=== PATIENT | female | born 1995 | race African-American/Black ===

== ENCOUNTER 2019-02-11 11:52 | Emergency (ER) | payer SELFPAY | END 2019-02-11 14:05 | disposition left against medical advice (07) | LOC: ER 11:52 | DX: Z53.21 Procedure and treatment not carried out due to patient leaving prior to being seen by health care provider (principal) ==

== ENCOUNTER 2019-02-13 01:06 | Emergency (ER) | payer SELFPAY | END 2019-02-13 01:33 | disposition left against medical advice (07) | LOC: ER 01:06 | DX: Z53.21 Procedure and treatment not carried out due to patient leaving prior to being seen by health care provider (principal) ==

== ENCOUNTER 2020-04-03 19:58 | Emergency (ER) | payer SELFPAY ==
[~2020-04-03] VITALS: Ht 167.6 cm; Wt 50.0 kg
[2020-04-03] MEDS ORDERED: METOCLOPRAMIDE HCL 10MG TABLET PO ONE (20:15)
[2020-04-03] MEDS ORDERED: ONDANSETRON HCL 4MG/2ML INJ IV STA (21:25)
[2020-04-03] MEDS ORDERED: KETOROLAC 30MG/ML VIAL IV STA (21:25)
[2020-04-03] MEDS ORDERED: MORPHINE SULFATE 4 MG/ML CPJ (NOT FOR IM USE) IV STA (21:25)
[2020-04-03] MEDS ORDERED: ACETAMINOPHEN 325MG TABLET PO STA (21:25)
[2020-04-03] MEDS ORDERED: SODIUM CHLORIDE 0.9% 1,000 ML IV ONE ×2 (21:30→23:00)
[2020-04-03 22:02] LABS: CLARITY URINE CLEAR (CLEAR); COLOR URINE YELLOW (YELLOW); KETONES URINE 1+ (NEGATIVE); LEUKOCYTE ESTERASE URINE NEGATIVE (NEGATIVE); NITRITE URINE NEGATIVE (NEGATIVE); OCCULT BLOOD URINE 3+ (NEGATIVE); PH URINE >=9.0 (4.5-8.0); PROTEIN URINE TRACE (NEGATIVE); SPECIFIC GRAVITY URINE 1.021 (1.005-1.030); UROBILINOGEN URINE 0.2 E.U./dL (0.2-1.0)
[2020-04-03 22:03] LABS: BASOPHILS % 0.3 % (0.0-2.0); EOSINOPHILS % 0.1 % (0.0-5.0); HEMATOCRIT. 36.8 % (36.0-48.0); HEMOGLOBIN. 12.3 g/dL (12.0-16.0); LYMPHOCYTES % 11.4 % (20.0-50.0); MEAN CORPUSCULAR HEMOGLOBIN 26.8 pg (28.0-32.0); MEAN CORPUSCULAR VOLUME 79.9 fL (81.0-99.0); MEAN PLATELET VOLUME 9.2 fl (7.4-10.4); NEUTROPHILS % 81.2 % (40.0-76.0); PLATELET 303 x1000/uL (130-400); RED CELL DISTRIBUTION WIDTH 15.1 % (11.6-14.6)
[2020-04-03 22:08] LABS: UCG SCREEN NEGATIVE
[2020-04-03 22:16] LABS: INR 1.1; PROTHROMBIN TIME 11.3 sec (9.6-11.0)
[2020-04-03 22:17] LABS: *AMPHETAMINES SCREEN URINE NEGATIVE (NEGATIVE); *BARBITURATES SCREEN URINE NEGATIVE (NEGATIVE); METHADONE URINE SCREEN NEGATIVE (NEGATIVE); OPIATES URINE SCREEN NEGATIVE (NEGATIVE); PHENCYCLIDINE URINE SCREEN NEGATIVE (NEGATIVE)
[2020-04-03 22:19] LABS: *BENZODIAZEPINES SCREEN URINE NEGATIVE (NEGATIVE); *COCAINE SCREEN URINE NEGATIVE (NEGATIVE)
[2020-04-03 22:21] LABS: CHLORIDE 106 mEq/L (98-107)
[2020-04-03 22:21] LABS: CANNABINOID URINE SCREEN PRESUMTIVE POSITIVE (NEGATIVE)
[2020-04-03] MEDS ORDERED: HALOPERIDOL LACTATE 5MG/ML VIAL IM ONE (22:30)
[2020-04-04] MEDS ORDERED: ONDA4TAB5 MT (00:44)
[2020-04-04 01:08] VITALS: BP 102/57
== END 2020-04-04 01:18 | disposition home or self-care (01) ==
LOC: ER 20:06
DX: R10.84 Generalized abdominal pain (principal); R11.10 Vomiting, unspecified; F12.10 Cannabis abuse, uncomplicated
CPT/HCPCS: 36415; 80053; 80305; 81003; 81025; 83605; 83690; 85025; 85610; 93005; 96361; 96374; 96375; 99284; J1885; J2405; J7030; J8597; J1630

== ENCOUNTER 2020-08-10 10:29 | Emergency (ER) | payer MEDICAID ==
[~2020-08-10] VITALS: Ht 170.2 cm; Wt 60.0 kg
[~2020-08-10 10:29] MED LIST: ONDA4TAB5 MT
[2020-08-10 12:15] LABS: HEMATOCRIT. 38.1 % (36.0-48.0); HEMOGLOBIN. 12.9 g/dL (12.0-16.0); MEAN CORPUSCULAR HEMOGLOBIN 26.3 pg (28.0-32.0); MEAN CORPUSCULAR VOLUME 77.9 fL (81.0-99.0); PLATELET 271 x1000/uL (130-400); RED BLOOD CELL COUNT 4.88 mill/uL (4.2-5.4); RED CELL DISTRIBUTION WIDTH 15.8 % (11.6-14.6)
[2020-08-10 12:16] LABS: CHLORIDE 102 mEq/L (98-107)
[2020-08-10 12:25] LABS: CLARITY URINE CLOUDY (CLEAR); COLOR URINE DARK YELLOW (YELLOW); KETONES URINE 2+ (NEGATIVE); LEUKOCYTE ESTERASE URINE NEGATIVE (NEGATIVE); NITRITE URINE NEGATIVE (NEGATIVE); OCCULT BLOOD URINE NEGATIVE (NEGATIVE); PH URINE 5.5 (4.5-8.0); PROTEIN URINE 1+ (NEGATIVE)
[2020-08-10 13:00] LABS: PLATELET ESTIMATE NORMAL
[2020-08-10 14:12] VITALS: BP 116/81
== END 2020-08-10 14:15 | disposition home or self-care (01) ==
LOC: ER 10:29
DX: E86.0 Dehydration (principal); D72.819 Decreased white blood cell count, unspecified
CPT/HCPCS: 36415; 80053; 81003; 81025; 85025; 99283

== ENCOUNTER 2021-03-20 00:33 | Emergency (ER) | payer MEDICAID ==
[~2021-03-20] VITALS: Ht 175.3 cm; Wt 64.0 kg
[2021-03-20] MEDS ORDERED: ONDANSETRON HCL 4MG/2ML INJ IV STA (00:39)
[2021-03-20] MEDS ORDERED: SODIUM CHLORIDE 0.9% 1,000 ML IV ONE (00:45)
[2021-03-20 01:09] VITALS: BP 107/69
== END 2021-03-20 01:51 | disposition left against medical advice (07) ==
LOC: ER 00:33
DX: R10.13 Epigastric pain (principal); F12.10 Cannabis abuse, uncomplicated
CPT/HCPCS: 99283; J7030

== ENCOUNTER 2021-03-20 06:15 | Emergency (ER) | payer MEDICAID ==
[~2021-03-20] VITALS: Ht 175.3 cm; Wt 63.0 kg
[2021-03-20] MEDS ORDERED: HALOPERIDOL LACTATE 5MG/ML VIAL IM ONE (06:30)
[2021-03-20] MEDS ORDERED: DIPHENHYDRAMINE 50MG/ML VIAL IM ONE (06:30)
[2021-03-20] MEDS ORDERED: ONDANSETRON 4MG ODT PO ONE (07:00)
[2021-03-20 10:04] VITALS: BP 109/59
== END 2021-03-20 10:15 | disposition home or self-care (01) ==
LOC: ER 06:15
DX: F12.188 Cannabis abuse with other cannabis-induced disorder (principal); F41.9 Anxiety disorder, unspecified; F17.210 Nicotine dependence, cigarettes, uncomplicated; Z71.6 Tobacco abuse counseling
CPT/HCPCS: 96372; 99284; 99406; J1200; J1630; Q0162

== ENCOUNTER 2021-05-31 08:55 | Emergency (ER) | payer MEDICAID ==
[~2021-05-31] VITALS: Ht 170.2 cm; Wt 51.0 kg
[2021-05-31 09:03] VITALS: BP 135/83
[2021-05-31] MEDS ORDERED: MAGNESIUM/ALUMINUM HYDROXIDE/SIMETHICONE 30ML UDC PO STA (09:18)
[2021-05-31] MEDS ORDERED: PANTOPRAZOLE SODIUM 40 MG/VIAL IV STA (09:18)
[2021-05-31] MEDS ORDERED: SODIUM CHLORIDE 0.9% 1,000 ML IV ONE (09:30)
[2021-05-31] MEDS ORDERED: DIPHENHYDRAMINE 50MG/ML VIAL IV ONE (09:30)
[2021-05-31] MEDS ORDERED: METOCLOPRAMIDE HCL 10MG/2ML VIAL IV ONE (09:30)
[2021-05-31] MEDS ORDERED: ONDA4TAB5 MT (22:21)
== END 2021-05-31 11:26 | disposition left against medical advice (07) ==
LOC: ER 10:57
DX: R10.13 Epigastric pain (principal); R11.2 Nausea with vomiting, unspecified; K82.4 Cholesterolosis of gallbladder; F12.10 Cannabis abuse, uncomplicated
CPT/HCPCS: 71045; 76705; 99284; J7030

== ENCOUNTER 2021-05-31 16:30 | Emergency (ER) | payer MEDICAID ==
[~2021-05-31] VITALS: Ht 162.6 cm; Wt 75.0 kg
[2021-05-31 16:31] VITALS: BP 139/118
[2021-05-31] MEDS ORDERED: ONDANSETRON 4MG ODT PO STA (16:37)
[2021-05-31] MEDS ORDERED: ACETAMINOPHEN 325MG TABLET PO STA (16:37)
[2021-05-31] MEDS ORDERED: MAGNESIUM/ALUMINUM HYDROXIDE/SIMETHICONE 30ML UDC PO STA (20:41)
[2021-05-31] MEDS ORDERED: ONDANSETRON HCL 4MG/2ML INJ IV STA (20:41)
[2021-05-31] MEDS ORDERED: ACETAMINOPHEN 325MG TABLET PO NR (20:45)
[2021-05-31] MEDS ORDERED: SODIUM CHLORIDE 0.9% 1,000 ML IV ONE (20:45)
[2021-05-31] MEDS ORDERED: ONDANSETRON HCL 4MG/2ML INJ IV NR (20:45)
[2021-05-31] MEDS ORDERED: ONDANSETRON 4MG ODT PO NR (20:45)
[2021-05-31] MEDS ORDERED: MAGNESIUM/ALUMINUM HYDROXIDE/SIMETHICONE 30ML UDC PO NR (20:45)
[2021-05-31 21:20] LABS: BASOPHILS % 0.8 % (0.0-2.0); CHLORIDE 105 mEq/L (98-107); HEMATOCRIT. 38.5 % (36.0-48.0); HEMOGLOBIN. 12.6 g/dL (12.0-16.0); LYMPHOCYTES % 12.3 % (20.0-50.0); MEAN CORPUSCULAR HEMOGLOBIN 26.6 pg (28.0-32.0); MEAN CORPUSCULAR VOLUME 81.6 fL (81.0-99.0); MEAN PLATELET VOLUME 9.2 fl (7.4-10.4); MONOCYTES % 4.9 % (2.0-8.0); PLATELET 331 x1000/uL (130-400); RED BLOOD CELL COUNT 4.72 mill/uL (4.2-5.4); RED CELL DISTRIBUTION WIDTH 15.6 % (11.6-14.6)
[2021-05-31 21:30] LABS: HCG SCREEN NEGATIVE
[2021-05-31] MEDS ORDERED: KETOROLAC 30MG/ML VIAL IV SCH (22:00)
[2021-05-31] MEDS ORDERED: ONDA4TAB5 MT (22:21)
== END 2021-05-31 22:33 | disposition home or self-care (01) ==
LOC: ER 16:30
DX: K85.90 Acute pancreatitis without necrosis or infection, unspecified (principal)
CPT/HCPCS: 36415; 80053; 81025; 83690; 84703; 85025; 93005; 96361; 96374; 96375; 99284; J1885; J2405; J7030

== ENCOUNTER 2021-08-18 16:56 | Emergency (ER) | payer MEDICAID ==
[~2021-08-18] VITALS: Ht 170.2 cm; Wt 51.0 kg
[2021-08-18] MEDS ORDERED: PANTOPRAZOLE SODIUM 40 MG/VIAL IV STA (18:22)
[2021-08-18] MEDS ORDERED: DIPHENHYDRAMINE 50MG/ML VIAL IV ONE (18:30)
[2021-08-18] MEDS ORDERED: HALOPERIDOL LACTATE 5MG/ML VIAL IM ONE (18:30)
[2021-08-18] MEDS ORDERED: SODIUM CHLORIDE 0.9% 1,000 ML IV ONE (18:30)
[2021-08-18 18:41] LABS: BASOPHILS % 0.2 % (0.0-2.0); HEMATOCRIT. 37.9 % (36.0-48.0); HEMOGLOBIN. 12.5 g/dL (12.0-16.0); LYMPHOCYTES % 9.8 % (20.0-50.0); MEAN CORPUSCULAR HEMOGLOBIN 26.6 pg (28.0-32.0); MEAN CORPUSCULAR VOLUME 80.4 fL (81.0-99.0); MEAN PLATELET VOLUME 9.1 fl (7.4-10.4); MONOCYTES % 6.3 % (2.0-8.0); NEUTROPHILS % 83.7 % (40.0-76.0); PLATELET 342 x1000/uL (130-400); RED BLOOD CELL COUNT 4.71 mill/uL (4.2-5.4); RED CELL DISTRIBUTION WIDTH 16.1 % (11.6-14.6)
[2021-08-18 18:47] LABS: INR 1.1; PROTHROMBIN TIME 11.8 sec (9.6-11.0)
[2021-08-18 18:50] LABS: CHLORIDE 105 mEq/L (98-107)
[2021-08-18 18:58] LABS: ETHANOL BLOOD < 10 mg/dL
[2021-08-18 19:00] LABS: HCG SCREEN NEGATIVE
[2021-08-18] MEDS ORDERED: POTASSIUM CHLORIDE INJ 40 MEQ in DEXT 5% WATER 250 ML IV ONE (19:30)
[2021-08-18] MEDS ORDERED: POTASSIUM BICARB/CIT ACID 25 MEQ TABLET.EFF PO ONE (19:30)
[2021-08-18] MEDS ORDERED: KCL 20MEQ/100ML X 2 FOR TOTAL KCL 40MEQ/200ML IV SCH (20:00)
[2021-08-18] MEDS ORDERED: DIPHENHYDRAMINE 50MG/ML VIAL IV NR (20:58)
[2021-08-18] MEDS ORDERED: KETOROLAC 15MG/ML VIAL IV NR (20:59)
[2021-08-18] MEDS ORDERED: PROCHLORPERAZINE 10MG/2ML VIAL IV PRN (21:00)
[2021-08-18] MEDS ORDERED: PROC5TAB55 MT (21:51)
[2021-08-18 23:30] VITALS: BP 124/74
== END 2021-08-19 00:13 | disposition home or self-care (01) ==
LOC: ER 16:56
DX: F12.188 Cannabis abuse with other cannabis-induced disorder (principal); E86.0 Dehydration; E87.6 Hypokalemia
CPT/HCPCS: 36415; 80053; 80320; 83690; 84703; 85025; 85610; 96361; 96365; 96372; 96375; 96376; 99285; C9113; J1200; J1630; J1885; J3480; J7030; J7060; G0480

== ENCOUNTER 2021-10-25 21:05 | Emergency (ER) | payer MEDICAID ==
[~2021-10-25] VITALS: Ht 170.2 cm; Wt 52.0 kg
[~2021-10-25 21:05] MED LIST changes: +PROC5TAB55 MT
[2021-10-25] MEDS ORDERED: METOCLOPRAMIDE HCL 10MG/2ML VIAL IV STA (23:09)
[2021-10-25] MEDS ORDERED: MORPHINE SULFATE 4 MG/ML CPJ (NOT FOR IM USE) IV ONE (23:15)
[2021-10-25] MEDS ORDERED: FAMOTIDINE 20MG/2ML VIAL IV ONE (23:15)
[2021-10-25] MEDS ORDERED: HALOPERIDOL LACTATE 5MG/ML VIAL IM ONE (23:15)
[2021-10-25] MEDS ORDERED: SODIUM CHLORIDE 0.9% 1,000 ML IV ONE (23:15)
[2021-10-25] MEDS ORDERED: DIPHENHYDRAMINE 50MG/ML VIAL IV ONE (23:15)
[2021-10-26 00:12] LABS: BASOPHILS % 0.2 % (0.0-2.0); HEMATOCRIT. 35.8 % (36.0-48.0); HEMOGLOBIN. 11.8 g/dL (12.0-16.0); LYMPHOCYTES % 9.3 % (20.0-50.0); MEAN CORPUSCULAR HEMOGLOBIN 26.8 pg (28.0-32.0); MEAN PLATELET VOLUME 8.9 fl (7.4-10.4); MONOCYTES % 8.2 % (2.0-8.0); NEUTROPHILS % 82.3 % (40.0-76.0); PLATELET 319 x1000/uL (130-400); RED BLOOD CELL COUNT 4.42 mill/uL (4.2-5.4); RED CELL DISTRIBUTION WIDTH 15.7 % (11.6-14.6)
[2021-10-26 00:18] LABS: CHLORIDE 104 mEq/L (98-107)
[2021-10-26 00:26] LABS: HCG SCREEN NEGATIVE
[2021-10-26 00:57] LABS: CLARITY URINE CLEAR (CLEAR); COLOR URINE YELLOW (YELLOW); KETONES URINE 3+ (NEGATIVE); LEUKOCYTE ESTERASE URINE NEGATIVE (NEGATIVE); NITRITE URINE NEGATIVE (NEGATIVE); OCCULT BLOOD URINE 2+ (NEGATIVE); PROTEIN URINE NEGATIVE (NEGATIVE); SPECIFIC GRAVITY URINE 1.018 (1.005-1.030); UROBILINOGEN URINE 0.2 E.U./dL (0.2-1.0)
[2021-10-26] MEDS ORDERED: MAGNESIUM OXIDE 400MG TABLET PO SCH (01:30)
[2021-10-26] MEDS ORDERED: POTASSIUM CHLORIDE 20MEQ TABLET SR PO ONE (01:30)
[2021-10-26 03:30] VITALS: BP 132/68
[2021-10-26] MEDS ORDERED: POTASSIUM CHLORIDE 20MEQ TABLET SR PO NR (03:30)
== END 2021-10-26 03:50 | disposition home or self-care (01) ==
LOC: ER 21:05
DX: R11.2 Nausea with vomiting, unspecified (principal); E87.6 Hypokalemia; F12.10 Cannabis abuse, uncomplicated
CPT/HCPCS: 36415; 71045; 80053; 81003; 82962; 83690; 84703; 85025; 93005; 96361; 96372; 96374; 96375; 99285; J1200; J1630; J2270; J2765; J3490; J7030

== ENCOUNTER 2021-11-28 07:00 | Emergency (ER) | payer MEDICAID ==
[~2021-11-28] VITALS: Ht 165.1 cm; Wt 72.0 kg
[2021-11-28 07:39] VITALS: BP 157/94
[2021-11-28] MEDS ORDERED: METOCLOPRAMIDE HCL 10MG/2ML VIAL IV ONE (08:30)
[2021-11-28 09:04] LABS: BASOPHILS % 0.8 % (0.0-2.0); EOSINOPHILS % 0.6 % (0.0-5.0); HEMATOCRIT. 36.9 % (36.0-48.0); HEMOGLOBIN. 12.2 g/dL (12.0-16.0); LYMPHOCYTES % 28.5 % (20.0-50.0); MEAN CORPUSCULAR HEMOGLOBIN 27.2 pg (28.0-32.0); MEAN CORPUSCULAR VOLUME 82.1 fL (81.0-99.0); MEAN PLATELET VOLUME 9.2 fl (7.4-10.4); MONOCYTES % 9.6 % (2.0-8.0); NEUTROPHILS % 60.5 % (40.0-76.0); PLATELET 330 x1000/uL (130-400); RED BLOOD CELL COUNT 4.49 mill/uL (4.2-5.4); RED CELL DISTRIBUTION WIDTH 16.1 % (11.6-14.6)
[2021-11-28 09:11] LABS: CHLORIDE 105 mEq/L (98-107)
[2021-11-28 09:12] LABS: INR 1.1; PROTHROMBIN TIME 11.4 sec (9.6-11.0)
[2021-11-28 09:19] LABS: HCG SCREEN NEGATIVE
[2021-11-28 10:05] LABS: CLARITY URINE HAZY (CLEAR); COLOR URINE YELLOW (YELLOW)
[2021-11-28 10:07] LABS: KETONES URINE 3+ (NEGATIVE); LEUKOCYTE ESTERASE URINE TRACE (NEGATIVE); NITRITE URINE NEGATIVE (NEGATIVE); OCCULT BLOOD URINE 1+ (NEGATIVE); PROTEIN URINE 1+ (NEGATIVE); UROBILINOGEN URINE 0.2 E.U./dL (0.2-1.0)
[2021-11-28] MEDS ORDERED: LACTATED RINGERS 1,000 ML IV STA (10:44)
[2021-11-28] MEDS ORDERED: HALOPERIDOL LACTATE 5MG/ML VIAL IM ONE ×2 (10:45→12:30)
[2021-11-28] MEDS ORDERED: DIPHENHYDRAMINE 50MG/ML VIAL IV ONE (12:30)
[2021-11-28] MEDS ORDERED: KCL 10MEQ/50ML PREMIX 50 ML IV ONE (12:30)
[2021-11-28] MEDS ORDERED: METO-293 MT (14:32)
== END 2021-11-28 14:50 | disposition home or self-care (01) ==
LOC: ER 07:00
DX: R11.2 Nausea with vomiting, unspecified (principal); F12.10 Cannabis abuse, uncomplicated; Z79.899 Other long term (current) drug therapy; E86.0 Dehydration; E87.6 Hypokalemia
CPT/HCPCS: 36415; 76856; 80053; 81003; 83690; 84703; 85025; 85610; 96361; 96372; 96374; 96375; 99284; J1200; J1630; J2765; J3480; J7120